=== PATIENT | male | born 1975 | race Two or more races ===

== ENCOUNTER 2021-09-25 05:08 | Emergency (ER) | payer MEDICAID, OTHER ==
[~2021-09-25] VITALS: Ht 195.6 cm; Wt 120.5 kg
[2021-09-25] MEDS ORDERED: IBUP-2070 PO (05:33)
[2021-09-25 07:32] VITALS: BP 143/82
== END 2021-09-25 07:48 | disposition home or self-care (01) ==
LOC: EMS 05:10
DX: S83.92XA Sprain of unspecified site of left knee, initial encounter (principal); W18.39XA Other fall on same level, initial encounter; Y93.89 Activity, other specified; Y92.89 Other specified places as the place of occurrence of the external cause; Y99.8 Other external cause status
CPT/HCPCS: 99283